=== PATIENT | male | born 1955 ===

== ENCOUNTER 2024-05-08 07:45 | Inpatient (IN) | payer OTHER ==
[~2024-05-08] VITALS: Ht 172.7 cm; Wt 80.7 kg
[2024-05-08] MEDS ORDERED: COZAAR25 MG PO (10:22)
[2024-05-08] MEDS ORDERED: HYDRALAZINE HCL10 MG PO (10:23)
[2024-05-08] MEDS ORDERED: CRESTOR10 MG PO (10:23)
[2024-05-08] MEDS ORDERED: METFORMIN HCL1000 M2 PO (10:23)
[2024-05-16] MEDS ORDERED: OxyCODONE HCL/APAP UD (PERCOCET) PO PRN (08:30)
[2024-05-16] MEDS ORDERED: ONDANSETRON HCL 2 MG/ML VIAL IV PRN (08:30)
[2024-05-16] MEDS ORDERED: ENOXAPARIN SODIUM 30 MG/0.3 ML SYRINGE SUBCUTANEO SCH (09:00)
[2024-05-16] MEDS ORDERED: CEFAZOLIN SODIUM 1,000 MG VIAL IV SCH ×2 (09:15→12:00)
[2024-05-16] MEDS ORDERED: BUPIVACAINE HCL 30 ML VIAL IJ ONE (09:15)
[2024-05-16] MEDS ORDERED: LIDOCAINE HCL 1%/EPINEPHRINE 20ML VIAL IJ ONE (09:15)
[2024-05-16] MEDS ORDERED: ISOPROPYL ALCOHOL 30 ML OUNCE TOP ONE (09:15)
[2024-05-16] MEDS ORDERED: MORPHINE SULFATE 4 MG/ML VIAL IV ONE (09:15)
[2024-05-16] MEDS ORDERED: KETOROLAC TROMETHAMINE 60 MG VIAL IM ONE (09:15)
[2024-05-16] MEDS ORDERED: TRANEXAMIC ACID 100MG/1ML (1000MG) AMPUL IV ONE (09:15)
[2024-05-16] MEDS ORDERED: MORPHINE SULFATE 4 MG/ML CARTRIDGE IV SCH (12:00)
[2024-05-16] MEDS ORDERED: ENALAPRILAT DIHYDRATE 1.25 MG/ML VIAL IV PRN (15:00)
[2024-05-16] MEDS ORDERED: hydrALAZINE HCL 25 MG TABLET PO SCH (15:41)
[2024-05-16] MEDS ORDERED: ORPHENADRINE CITRATE 100 MG TABLET PO SCH (21:00)
[2024-05-16] MEDS ORDERED: GABAPENTIN 100 MG CAPSULE PO SCH (21:00)
[2024-05-17 05:10] LABS: HEMATOCRIT 38.2 % (39.0-48.0); HEMOGLOBIN 12.4 g/dL (13-16.00); MEAN CELL VOLUME 88.5 fL (80.0-100.00); MEAN CORPUSCULAR HEMOGLOBIN 28.7 pg (27.00-32.0); MEAN CORPUSCULAR HGB CONC 32.4 g/dl (32.0-36.0); PLATELET COUNT 158 K/uL (150-450); RED BLOOD COUNT 4.31 M/uL (4.00-6.00); RED CELL DISTRIBUTION WIDTH 13.3 % (11.5-14.5)
[2024-05-17] MEDS ORDERED: LOSARTAN POTASSIUM 50 MG TABLET PO SCH (09:00)
[2024-05-17] MEDS ORDERED: VITAMIN B COMPLEX 1 EACH PO SCH (17:00)
[2024-05-17] MEDS ORDERED: Cyanocobalamin/Mecobalamin 1 TAB.SL SL SCH (17:00)
[2024-05-17] MEDS ORDERED: IRON FUM,PS/FOLIC ACID/VITC/B3 1 CAP CAPSULE PO SCH (17:00)
[2024-05-18 07:15] LABS: HEMATOCRIT 33.3 % (39.0-48.0); HEMOGLOBIN 11.2 g/dL (13-16.00); MEAN CELL VOLUME 86.7 fL (80.0-100.00); MEAN CORPUSCULAR HEMOGLOBIN 29.3 pg (27.00-32.0); MEAN CORPUSCULAR HGB CONC 33.8 g/dl (32.0-36.0); PLATELET COUNT 144 K/uL (150-450); RED BLOOD COUNT 3.83 M/uL (4.00-6.00); RED CELL DISTRIBUTION WIDTH 13.4 % (11.5-14.5)
[2024-05-18] MEDS ORDERED: CARTEOLOL HCL5 ML (08:07)
[2024-05-18] MEDS ORDERED: GABAPENTIN300 M2 (08:07)
[2024-05-18] MEDS ORDERED: SIMBRINZA 1%-0.28 M1 (08:07)
[2024-05-18] MEDS ORDERED: LOSARTAN POTASS25 MG (08:07)
[2024-05-18] MEDS ORDERED: ROSUVASTATIN CA40 MG (08:08)
[2024-05-18] MEDS ORDERED: METOPROLOL SUCC25 MG (08:08)
== END 2024-05-18 13:11 | DRG 470 ==
LOC: O/R 05-16 05:30 → SURH 05-16 07:45 → SURG 05-16 14:10 → SURH 05-16 16:45 → SURG 05-18 13:11
PROVIDERS: ADMIT Orthopaedic Surgery; ATTEND Orthopaedic Surgery
PROC: 0SRC0J9 Replacement of Right Knee Joint with Synthetic Substitute, Cemented, Open Approach (ICD-10-PCS; principal; 2024-05-16 16:45)
DX: M17.11 Unilateral primary osteoarthritis, right knee (principal); D62 Acute posthemorrhagic anemia; M85.661 Other cyst of bone, right lower leg; I10 Essential (primary) hypertension; E78.5 Hyperlipidemia, unspecified